=== PATIENT | female | born 1960 | race Two or more races ===

== ENCOUNTER 2017-07-08 16:41 | Inpatient (IN) | payer MEDICAID ==
[2017-07-08] MEDS ORDERED: cefTRIAXone 1 GM in Sodium Chloride 0.9% 50 ML IV ONE (17:31)
[2017-07-08 18:05] LABS: LYMPHOCYTE ABSOLUTE 0.5 Th/cmm (1.5-3.0); MEAN CORPUSCULAR HEMOGLOBIN 27.8 pg (27.0-31.0); MEAN CORPUSCULAR HGB CONC 33.5 pg (28.0-36.0); MEAN PLATELET VOLUME 8.4 fl; MONOCYTE ABSOLUTE 0.5 Th/cmm (0.3-1.0); NEUTROPHILE ABSOLUTE 11.1 Th/cmm (1.8-8.0); RED BLOOD COUNT 5.33 Mil/cmm (3.80-5.10); RED CELL DISTRIBUTION WIDTH 12.2 % (11.5-20.0)
--- NOTE | 2017-07-08 18:06 | ED Physician Chart ---
ED Chief Complaint/HPI - Patient Information Date Seen:: 07/08/17 Time Seen:: 17:00 Chief Complaint:: Left Leg Redness History of Present Illness:: onset x 3 days of LLE erythema and swelling; Hx of Cellulitis; pt denies trauma , H/As, neck pain, C/P, SOB, Abd. Pain, A/N/V/D/C, fever, chills, or urinary s/s Allergies:: Allergies Allergy/AdvReac Type Severity Reaction Status Date / Time No Known Allergies Allergy Verified 07/08/17 17:15 Vitals:: Vital Signs - 8 hr 07/08/17 17:00 Temp 100.9 F HR 120 RR 16 BP 142/76 O2 Sat % 98 Historian:: Patient Review:: Nurse's Note Reviewed ED Review of Systems - Review of Systems General/Constitutional: Fever, No chills, No weight loss, No weakness, No diaphoresis, No edema, No loss of appetite Skin: No skin lesions, No rash, No bruising Head: No headache, No light-headedness Eyes: No loss of vision, No pain, No diplopia ENT: No earache, No nasal drainage, No sore throat, No tinnitus Neck: No neck pain, No swelling, No thyromegaly, No stiffness, No mass noted Cardio Vascular: No chest pain, No palpitations, No PND, No orthopnea, No edema Pulmonary: No SOB, No cough, No sputum, No wheezing GI: No nausea, No vomiting, No diarrhea, No pain, No melena, No hematochezia, No constipation, No hematemesis G/U: No dysuria, No frequency, No hematuria, No nacturia 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, No abnormal vaginal bleed, No contraction Musculoskeletal: No bone or joint pain, No back pain, No muscle pain Endocrine: No polyuria, No polydipsia Psychiatric: No prior psych history, No depression, No anxiety, No suicidal ideation, No homicidal ideation, No auditory hallucination, No visual hallucination Hematopoietic: No bruising, No lymphadenopathy Allergic/Immuno: No urticaria, No angioedema Neurological: No syncope, No focal symptoms, No weakness, No paresthesia, No headache, No seizure, No dizziness, No confusion, No vertigo ED Past Medical History - Past Medical History Obtainable: Yes Past Medical History: HTN Family History: HTN Social History: Non Smoker, No Alcohol, No Drug Use, Surgical History: None Psychiatricy History: None Medication: Reviewed Family Medical History - Family Member Father History Unknown: Yes ED Physical Exam - Physical Examination General/Constitutional: Awake, Well-developed, well-nourished, Alert, No distress, GCS 15, Non-toxic appearing, Ambulatory Head: Atraumatic Eyes: Lids, conjuctiva normal, PERRL, EOMI Skin: Nl inspection, No rash, No skin lesions, No ecchymosis, Well hydrated, No lymphadenopathy Other Skin comments:: + LLE Cellulitis; no FBs ENMT: External ears, nose nl, TM canals nl, Nasal exam nl, Lips, teeth, gums nl , Oropharynx nl, Tonsils nl Neck: Nontender, Full ROM w/o pain, No JVD, No nuchal rigidity, No bruit, No mass, No stridor Respiratory: Nl effort/Exclusion, Clear to Auscultation, No Wheeze/Rhonchi/Rales Cardio Vascular: RRR, No murmur, gallop, rubs, NL S1 S2, Carotid/Femoral/Distal pulses equal bilaterally GI: No tenderness/rebounding/guarding, No organomegaly, No hernia, Normal BS's, Nondistended, No mass/bruits, No McBurney tenderness : No CVA tenderness Extremities: No tenderness or effusion, Full ROM, normal strength in all extremities, No edema, Normal digits & nails Other Extremities comments:: as above Neuro/Psych: Alert/oriented, DTR's symmetric, Normal sensory exam, Normal motor strength, Judgement/insight normal, Mood normal, Normal gait, No focal deficits Misc: Normal back, No paraspinal tenderness ED Labs/Radiology/EKG Results - Lab Results Comments:: WBC: 12.1; K+: 3.3 - EKG Interpretations EKG Time:: 17:40 Rate & Rhythm: 118; ST Comments:: LBBB; non-specific st-t changes ED Septic Shock - . Is Septic Shock (SBP<90, OR Lactate>4 mmol\L) present?: No - <6hrs of presentation: Vital Signs: Vital Signs - 8 hr 07/08/17 17:00 Temp 100.9 F HR 120 RR 16 BP 142/76 O2 Sat % 98 ED Reassessment (Disposition) - Reassessment Reassessment Condition:: Improved - Diagnosis Diagnosis:: Dx: Cellulitis; Leukocytosis; Hypokalemia - Patient Disposition Discharge/Transfer:: Acute Care w/in this hosp Accepting Physician:: Dr. Tom Time Called:: 1849 Time Responded:: 18:50 Admitted to:: Med/Surg Spoke to:: Dr. Tom Admitting Medical Physician:: Dr. Tom Condition at Disposition:: Stable, Improved
[2017-07-08 18:17] LABS: HEMATOCRIT 44.2 % (41.0-60); HEMOGLOBIN 14.8 gm/dL (12-16); PLATELET COUNT 212 Th/cmm (150-400); WHITE BLOOD COUNT 12.1 Th/cmm (4.8-10.8)
[2017-07-08 18:19] LABS: TROP I 0.02 ng/mL (0.01-0.05)
[2017-07-08 18:20] LABS: ALBUMIN 4.1 gm/dL (3.7-5.3); ALKALINE PHOSPHATASE 142 U/L (34-104); ANION GAP 10.1 (7.0-16.0); BUN - UREA NITROGEN 12 mg/dL (7-25); CALCIUM SERUM 9.6 mg/dL (8.6-10.3); CARBON DIOXIDE 28.2 mEq/L (21.0-31.0); CHLORIDE 100 mEq/L (98-107); CREATININE - SERUM 0.7 mg/dL (0.6-1.2); CREATININE KINASE 66 U/L (30-223); GFR AFRICAN-AMERICAN > 60.0 ml/min (>90); GFR NON AFRICAN-AMERICAN > 60.0 ml/min; GLUCOSE 88 mg/dL (70-105); POTASSIUM SERUM 3.3 mEq/L (3.5-5.1); SGOT 21 U/L (13-39); SGPT/ALT 23 U/L (7-52); SODIUM SERUM 135 mEq/L (136-145); TOTAL PROTEIN,SERUM 8.2 gm/dL (6.0-8.3)
[2017-07-08 18:35] LABS: INR 1.05 (0.5-1.4); PROTHROMBIN TIME (TEST) 10.9 SECONDS (9.5-11.5)
[2017-07-08 18:53] LABS: BAND NEUTROPHILE 6 % (0-10); LYMPHOCYTE 1 % (20-50); MONOCYTE 8 % (2-10); NEUTROPHILS 85 % (40-80)
[2017-07-08 18:54] LABS: PLATELET ESTIMATE ADEQUATE (NORMAL)
[2017-07-08 19:06] LABS: URINE MICROSCOPIC INDICATED? YES; URINE SOURCE MIDSTREAM
[2017-07-08 19:09] LABS: URINE BILIRUBIN SMALL (NEGATIVE); URINE BLOOD TRACE (NEGATIVE); URINE GLUCOSE (UA) NEGATIVE (NEGATIVE); URINE KETONE NEGATIVE (NEGATIVE); URINE LEUKOCYTE ESTERASE NEGATIVE (NEGATIVE); URINE NITRATE NEGATIVE (NEGATIVE); URINE PH 5.5 (4.6 - 8.0); URINE PROTEIN TRACE mg/dL (NEGATIVE)
[2017-07-08 19:18] LABS: URINE CLARITY CLEAR (CLEAR); URINE COLOR DARK YELLOW; URINE RBC 0-1 /hpf (0-5)
[2017-07-08 19:19] LABS: URINE BACTERIA 1+ /hpf (NONE SEEN); URINE EPITHELIAL CELLS FEW /lpf (FEW); URINE WBC 0-2 /hpf (0-5)
[2017-07-08] MEDS ORDERED: Potassium Chloride 20 mEq ER Tab PO ONE ×2 (19:55→20:22)
[2017-07-08] MEDS ORDERED: Potassium Chloride 20 mEq ER Tab PO PRN (21:33)
[2017-07-08] MEDS ORDERED: Mag Sulfate 2gm/50mL Premix 2 GM/50 ML BAG IV PRN (21:33)
[2017-07-08] MEDS ORDERED: Potassium Chloride 40 MEQ, Lidocaine 1% 20mL Vial 25 MG in Sodium Chloride 0.9% 250 ML IV PRN (21:33)
[2017-07-08] MEDS ORDERED: Sodium Chloride 0.9% 1,000 ML IV SCH (21:45)
[2017-07-08] MEDS: Morphine Sulfate 2 mg/mL 1mL Syr IVP PRN (23:11)
[2017-07-09 05:39] LABS: % BASOPHILS 0.1 % (0.0-2.0); % LYMPHOCYTES 13.4 % (20.0-50.0); % MONOCYTES 10.5 % (2.0-10.0); EOSINOPHILE ABSOLUTE 0.1 Th/cmm (0.1-0.4); HEMOGLOBIN 12.4 gm/dL (12-16); LYMPHOCYTE ABSOLUTE 0.8 Th/cmm (1.5-3.0); MEAN CELL VOLUME 82.5 fl (81-100); MEAN CORPUSCULAR HEMOGLOBIN 27.7 pg (27.0-31.0); MEAN CORPUSCULAR HGB CONC 33.6 pg (28.0-36.0); MEAN PLATELET VOLUME 8.3 fl; MONOCYTE ABSOLUTE 0.7 Th/cmm (0.3-1.0); NEUTROPHILE ABSOLUTE 4.7 Th/cmm (1.8-8.0); PLATELET COUNT 204 Th/cmm (150-400); RED BLOOD COUNT 4.46 Mil/cmm (3.80-5.10); RED CELL DISTRIBUTION WIDTH 12.5 % (11.5-20.0)
[2017-07-09 05:42] LABS: HEMATOCRIT 36.8 % (41.0-60); WHITE BLOOD COUNT 6.3 Th/cmm (4.8-10.8)
[2017-07-09 05:50] LABS: BUN - UREA NITROGEN 10 mg/dL (7-25); CALCIUM SERUM 8.9 mg/dL (8.6-10.3); CARBON DIOXIDE 28.2 mEq/L (21.0-31.0); CHLORIDE 103 mEq/L (98-107); CREATININE - SERUM 0.5 mg/dL (0.6-1.2); GFR AFRICAN-AMERICAN > 60.0 ml/min (>90); GFR NON AFRICAN-AMERICAN > 60.0 ml/min; GLUCOSE 114 mg/dL (70-105); POTASSIUM SERUM 4.2 mEq/L (3.5-5.1); SODIUM SERUM 134 mEq/L (136-145)
--- NOTE | 2017-07-09 08:07 | Diagnostic Imaging Report ---
Bilateral lower extremity DVT study HISTORY: Leg swelling, rule out DVT COMPARISON: None Technique: Longitudinal and transverse sonographic images of the bilateral lower extremity veins were obtained with doppler analysis. FINDINGS: There is normal compressibility, augmentation and phasicity of the bilateral common femoral, superficial femoral, popliteal, and posterior tibial veins. No thrombus is visualized. IMPRESSION: No evidence of thrombus within the bilateral lower extremity veins.
--- NOTE | 2017-07-09 08:09 | Diagnostic Imaging Report ---
CHEST X-RAY: AP view INDICATION: Leukocytosis COMPARISON: None FINDINGS: Increased interstitial lung markings are noted. There is no focal consolidation or pleural effusions The heart is normal in size. Degenerative changes of the spine are noted. IMPRESSION: Increased initial lung markings, nonspecific and probably chronic. No focal consolidation is identified.
[2017-07-09] MEDS ORDERED: Sodium Chloride 0.9% 1,000 ML IV SCH (08:30)
--- NOTE | 2017-07-09 09:23 | History & Physical ---
ADMIT DATE: 07/08/2017 CHIEF COMPLAINT: Intractable left lower extremity pain and inflammation, erythema. HISTORY OF PRESENT ILLNESS: The patient is a pleasant 56-year-old female. She is currently on disability because the left lower extremity cellulitis on multiple occasions. In 2012, she had a cyst removed from her knees. She states that it was not called a Huber's cyst. Since then, she has been experiencing cellulitis of left lower extremity every 6 months, but for the last year or so, she states it has been about every 3 months. She was experiencing fevers, intractable pain. She was found to have sepsis and cellulitis and admitted for further workup and treatment. PAST MEDICAL HISTORY: Significant for hypertension, multiple lower extremity cellulitis. SOCIAL HISTORY: She smokes about 2-3 cigarettes a day for about 10 years now. Denies any alcohol or drug abuse. FAMILY HISTORY: Noncontributory. ALLERGIES: No known drug allergies. PAST SURGICAL HISTORY: 1. Left knee cyst/mass removal in 2012. 2. One hysterectomy without any complications. MEDICATIONS: She states that she takes one blood pressure medication at home, but she cannot recall the name. REVIEW OF SYSTEMS: GENERAL: Positive recent fatigue, fevers and decreased appetite. HEENT: No recent head trauma or change in vision, taste, hearing, or smell. Oral: Denies any pain or discharge. SKIN: No recent rashes. Positive for erythema, inflammation and redness. The left lower extremity is positive for pain and the whole tibial area basically above the ankles and below the knee has been red, inflamed, and very tender for the last several days. MUSCULOSKELETAL: No history of DJD or recent falls. PSYCHIATRIC: No history of psychosis or hallucinations. CARDIOVASCULAR: She has history of hypertension. Denies any history of MIs. NEUROLOGIC: No history of stroke or seizure. RESPIRATORY: No history of COPD or asthma. PHYSICAL EXAMINATION: VITAL SIGNS: Temperature 97.6 degrees, heart rate is 82, respirations 16, blood pressure 122/78. Currently, the pain is about 2/10 in left lower extremity. GENERAL: No acute distress, awake, alert, pleasant. HEENT: No acute issues. NECK: Trachea is midline. No JVD. CARDIOVASCULAR: Regular rate and rhythm. ABDOMEN: Nontender, nondistended. RESPIRATORY: Clear. EXTREMITIES: No edema. SKIN: The left lower extremity has erythema, inflammation and is tender to touch. There are no open wounds; however, there is no discharge. PSYCHIATRIC: No psychosis or hallucinations. LABORATORY DATA: UA is negative. White count is 12.1; hemoglobin is 14.8; platelet count is 212,000. Sodium 135, potassium 3.3, chloride 100, bicarbonate 28.2, BUN 12, creatinine 0.7, alkaline phosphatase 142. Venous Doppler ultrasound preliminary report does not show any DVT in the left lower extremity. I have ordered arterial Doppler as well. ASSESSMENT: 1. Left lower extremity cellulitis. 2. Sepsis. 3. Hypertension. 4. Hypokalemia. PLAN: The patient is on Rocephin 1 gram IV daily. The white count is trending down. She reports improvement from yesterday. Continue IV fluids. She is on a regular diet. Her blood pressure has been stable. I will consider starting blood pressure medication if the blood pressure rises. Potassium has been replenished. Continue pain control. She is on IV normal saline as well. JOB# [id number]
--- NOTE | 2017-07-09 13:36 | Diagnostic Imaging Report ---
Left lower extremity arterial study HISTORY: Pain COMPARISON: None Technique: Longitudinal and transverse sonographic images of the left lower extremity arteries were obtained with doppler analysis. FINDINGS: Exam of the left lower extremity demonstrates mild to moderate atherosclerotic vascular disease with probably biphasic waveforms seen distally. No sonographic evidence of occlusion. Left ADDIE is 1 IMPRESSION: Mild to moderate atherosclerotic vascular disease. No sonographic evidence of occlusion.
[2017-07-09 14:21] LABS: A1C % 6.5 % (4.0-6.0)
[2017-07-09] MEDS ORDERED: Probiotic Screen MC PRN (15:24)
[2017-07-09] MEDS ORDERED: cefTRIAXone 1 GM in Sodium Chloride 0.9% 50 ML IV SCH (18:00)
[2017-07-09] MEDS: Morphine Sulfate 2 mg/mL 1mL Syr IVP PRN (21:30)
[2017-07-10 06:23] LABS: HEMATOCRIT 34.9 % (41.0-60); HEMOGLOBIN 11.9 gm/dL (12-16); MEAN CELL VOLUME 82.6 fl (81-100); MEAN CORPUSCULAR HEMOGLOBIN 28.1 pg (27.0-31.0); MEAN PLATELET VOLUME 8.4 fl; PLATELET COUNT 203 Th/cmm (150-400); RED BLOOD COUNT 4.22 Mil/cmm (3.80-5.10); RED CELL DISTRIBUTION WIDTH 12.3 % (11.5-20.0)
[2017-07-10 06:31] LABS: ANION GAP 6.9 (7.0-16.0); BUN - UREA NITROGEN 9 mg/dL (7-25); CALCIUM SERUM 8.4 mg/dL (8.6-10.3); CARBON DIOXIDE 24.9 mEq/L (21.0-31.0); CHLORIDE 107 mEq/L (98-107); CREATININE - SERUM 0.4 mg/dL (0.6-1.2); GFR AFRICAN-AMERICAN > 60.0 ml/min (>90); GFR NON AFRICAN-AMERICAN > 60.0 ml/min; GLUCOSE 110 mg/dL (70-105); POTASSIUM SERUM 3.8 mEq/L (3.5-5.1); SODIUM SERUM 135 mEq/L (136-145)
[2017-07-10 08:08] LABS: BAND NEUTROPHILE 7 % (0-10); EOSINOPHIL 4 % (0-5); LYMPHOCYTE 20 % (20-50); MONOCYTE 8 % (2-10); NEUTROPHILS 61 % (40-80); TOTAL CELLS COUNTED 100
[2017-07-10] MEDS ORDERED: Lactobacillus Rhamnosus GG 15 Billion CFU CAP.SPRINK PO SCH (09:00)
--- NOTE | 2017-07-10 23:10 | Discharge Summary ---
DATE OF DISCHARGE: 07/10/2017 CAUSE OF ADMISSION: The patient is a pleasant 56-year-old female. She has history of left lower extremity pain in the past; since 2012, she has been having cellulitis. She had a cyst removed from her knee on the left, it was not a Huber cyst. According to her, she has been experiencing cellulitis of the left lower extremity every 6 months since then. She was admitted for cellulitis and sepsis at this time again. ADMITTING DIAGNOSES: 1. Left lower extremity cellulitis. 2. Sepsis. 3. Hypertension. 4. Hypokalemia. DISCHARGE DIAGNOSES: 1. Left lower extremity cellulitis. 2. Sepsis. 3. Hypertension. 4. Hypokalemia. 5. Diabetes/prediabetes. SUMMARY OF HOSPITAL COURSE: The patient was started on Rocephin 1 g IV daily. The white count has been trending down today. Her inflammation, erythema and pain have decreased by over 80%. She is feeling much better. She is afebrile. She has been on regular diet. Blood pressure has been stable. Potassium was replenished as well. We continued pain control. She would like to go home today. PHYSICAL EXAMINATION: VITAL SIGNS: Temperature is 97.4 degrees, heart rate 72, respirations 17, blood pressure 130/77. Currently, no pain. GENERAL: No acute distress, awake, alert, pleasant. HEENT: No acute issues. NECK: Trachea is midline. CARDIOVASCULAR: Regular rate and rhythm. SKIN: Left lower extremity erythema and inflammation has reduced by over 90%, it is no longer tender. She is feeling much better. LABORATORY DATA: White count has reduced from 12 to 4, hemoglobin is 11.9, and platelet count is 203,000. Sodium 135, potassium 3.8, chloride 107, bicarb 24.9, BUN 9, creatinine 0.4, glucose is 110. Hemoglobin A1c is 6.5. Calcium is 8.4. SUMMARY OF HOSPITAL COURSE: The patient was admitted as mentioned above. She is on Rocephin. She is doing much better. Inflammation and erythema has improved. White count is down to normal. She is afebrile. IMAGING STUDY: Arterial Doppler and venous Doppler were done of the lower extremities, there is no DVT and arterial Doppler does not show any acute limitations, she does have [id number] atherosclerotic vascular disease, no occlusion however. DISPOSITION: She is discharging home. CONSULTS: None. PROCEDURES: None. MEDICATIONS: I have given her a script for Keflex as Rocephin is working very well for her and she just wants the oral version of that. I told her they are both cephalosporins and she is pleased. She is to follow with her PCP within 1 week of discharge. JOB# [id number]
== END 2017-07-10 10:30 | disposition home or self-care (01) | DRG 720 ==
LOC: ER 16:41 → MSI 20:05
PROVIDERS: ADMIT General Practice; ATTEND General Practice
DX: A41.9 Sepsis, unspecified organism (principal); L03.116 Cellulitis of left lower limb; I10 Essential (primary) hypertension; E11.9 Type 2 diabetes mellitus without complications; E87.6 Hypokalemia; F17.210 Nicotine dependence, cigarettes, uncomplicated; Z82.49 Family history of ischemic heart disease and other diseases of the circulatory system
CPT/HCPCS: 36415-UA; 71045-TC; 80048-TC; 80053-TC; 81001-TC; 82550-TC; 83036-90; 83605; 83735-TC; 84484-TC; 84703-TC; 85007-TC; 85025-TC; 85027-TC; 85610-TC; 85730-TC; 93005; 93926-LT-TC; 93970-TC-50; J0696; J1644; J2270; J7030; Z7610

== ENCOUNTER 2018-04-26 10:56 | Inpatient (IN) | payer MEDICAID ==
[2018-04-26] MEDS ORDERED: Morphine Sulfate 2 mg/mL 1mL Syr IV STA (11:34)
--- NOTE | 2018-04-26 11:39 | ED Physician Chart ---
ED Chief Complaint/HPI - Patient Information Date Seen:: 04/26/18 Time Seen:: 11:15 Chief Complaint:: Myalgias History of Present Illness:: onset x 3 days of generalized myalgias and LE MS type pain; pt denies trauma, LOC, ALOC, AMS, H/As, S/T, neck pain, C/P, cough, SOB, Abd. Pain, A/N/V/D/C, fever,chills, or urinary s/s Allergies:: Allergies Allergy/AdvReac Type Severity Reaction Status Date / Time No Known Allergies Allergy Verified 07/08/17 17:15 Vitals:: Vital Signs - 8 hr 04/26/18 11:14 Temp 99.4 F HR 106 RR 18 BP 115/53 O2 Sat % 98 Historian:: Patient Review:: Nurse's Note Reviewed, Old Chart Reviewed ED Review of Systems - Review of Systems General/Constitutional: No fever, No chills, No weight loss, No weakness, No diaphoresis, No edema, No loss of appetite Skin: No skin lesions, No rash, No bruising Head: No headache, No light-headedness Eyes: No loss of vision, No pain, No diplopia ENT: No earache, No nasal drainage, No sore throat, No tinnitus Neck: No neck pain, No swelling, No thyromegaly, No stiffness, No mass noted Cardio Vascular: No chest pain, No palpitations, No PND, No orthopnea, No edema Pulmonary: No SOB, No cough, No sputum, No wheezing GI: No nausea, No vomiting, No diarrhea, No pain, No melena, No hematochezia, No constipation, No hematemesis G/U: No dysuria, No frequency, No hematuria, No 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, No abnormal vaginal bleed, No contraction Musculoskeletal: Bone or joint pain, No back pain, Muscle pain Endocrine: No polyuria, No polydipsia Psychiatric: No prior psych history, No depression, No anxiety, No suicidal ideation, No homicidal ideation, No auditory hallucination, No visual hallucination Hematopoietic: No bruising, No lymphadenopathy Allergic/Immuno: No urticaria, No angioedema Neurological: No syncope, No focal symptoms, No weakness, No paresthesia, No headache, No seizure, No dizziness, No confusion, No vertigo ED Past Medical History - Past Medical History Obtainable: Yes Past Medical History: HTN, Arthritis Family History: HTN Social History: Non Smoker, No Alcohol, No Drug Use, Surgical History: , other (Left Knee Surgery) Psychiatricy History: None Medication: Reviewed Family Medical History - Family Member Father History Unknown: Yes Ethnicity: Living Status: Hx Family Cancer: Yes (LUNG CA) Hx Family Hypertension: Yes Mother Ethnicity: Living Status: Still Living Hx Family Hypertension: Yes ED Physical Exam - Physical Examination General/Constitutional: Awake, Well-developed, well-nourished, Alert, No distress, GCS 15, Non-toxic appearing, Ambulatory Head: Atraumatic Eyes: Lids, conjuctiva normal, PERRL, EOMI Skin: Nl inspection, No rash, No skin lesions, No ecchymosis, Well hydrated, No lymphadenopathy Other Skin comments:: + LE mild cellulitis ENMT: External ears, nose nl, TM canals nl, Nasal exam nl, Lips, teeth, gums nl , Oropharynx nl, Tonsils nl Neck: Nontender, Full ROM w/o pain, No JVD, No nuchal rigidity, No bruit, No mass, No stridor Respiratory: Nl effort/Exclusion, Clear to Auscultation, No Wheeze/Rhonchi/Rales Cardio Vascular: RRR, No murmur, gallop, rubs, NL S1 S2, Carotid/Femoral/Distal pulses equal bilaterally GI: No tenderness/rebounding/guarding, No organomegaly, No hernia, Normal BS's, Nondistended, No mass/bruits, No McBurney tenderness : No CVA tenderness Extremities: No tenderness or effusion, Full ROM, normal strength in all extremities, No edema, Normal digits & nails Neuro/Psych: Alert/oriented, DTR's symmetric, Normal sensory exam, Normal motor strength, Judgement/insight normal, Mood normal, Normal gait, No focal deficits Misc: Normal back, No paraspinal tenderness ED Labs/Radiology/EKG Results - Lab Results Comments:: Reviewed - Radiology Results Comments:: NAD - EKG Interpretations EKG Time:: 11:41 Rate & Rhythm: 88; NSR Comments:: LBBB; PVCs; non-specific st-t changes ED Septic Shock - . Is Septic Shock (SBP<90, OR Lactate>4 mmol\L) present?: No - <6hrs of presentation: Vital Signs: Vital Signs - 8 hr 04/26/18 11:14 Temp 99.4 F HR 106 RR 18 BP 115/53 O2 Sat % 98 ED Reassessment (Disposition) - Reassessment Reassessment Condition:: Improved - Diagnosis Diagnosis:: Leg Pain; Myalgias; Cellulitis; Hypokalemia; Leukocytosis; UTI; Elevated D-Dimer ; Sepsis - Aftercare/Follow up Instructions Aftercare/Follow-Up Instructions:: Counseled pt regarding lab results/diagnosis & need follow up, Counseled pt & family regarding lab results/diagnosis & need follow up - Patient Disposition Discharge/Transfer:: Acute Care w/in this hosp Accepting Physician:: Dr. Mehta Time Called:: 1300 Time Responded:: 13:00 Admitted to:: Telemetry Spoke to:: Dr. Mehta Admitting Medical Physician:: Dr. Mehta Condition at Disposition:: Stable, Improved
[2018-04-26 11:55] LABS: HEMATOCRIT 39.8 % (41.0-60); MEAN PLATELET VOLUME 8.3 fl
[2018-04-26] MEDS ORDERED: Morphine Sulfate 2 mg/mL 1mL Syr ONE (11:56)
[2018-04-26 11:58] LABS: HEMOGLOBIN 13.4 gm/dL (12-16); MEAN CELL VOLUME 82.3 fl (81-100); MEAN CORPUSCULAR HEMOGLOBIN 27.7 pg (27.0-31.0); MEAN CORPUSCULAR HGB CONC 33.7 pg (28.0-36.0); PLATELET COUNT 237 Th/cmm (150-400); RED BLOOD COUNT 4.83 Mil/cmm (3.80-5.10); RED CELL DISTRIBUTION WIDTH 12.5 % (11.5-20.0); WHITE BLOOD COUNT 14.7 Th/cmm (4.8-10.8)
[2018-04-26 12:03] LABS: INR 1.34 (0.5-1.4); PROTHROMBIN TIME (TEST) 13.7 SECONDS (9.5-11.5)
[2018-04-26 12:08] LABS: ALB/GLOB RATIO 1.2 (1.0-1.8); ALKALINE PHOSPHATASE 120 U/L (34-104); ANION GAP 13.4 (7.0-16.0); BILIRUBIN,TOTAL 1.1 mg/dL (0.3-1.0); BUN - UREA NITROGEN 16 mg/dL (7-25); CALCIUM SERUM 9.3 mg/dL (8.6-10.3); CARBON DIOXIDE 24.5 mEq/L (21.0-31.0); CHLORIDE 100 mEq/L (98-107); CHOLESTEROL 112 mg/dL (<200); CREATININE - SERUM 0.6 mg/dL (0.6-1.2); CREATININE KINASE 56 U/L (30-223); GFR AFRICAN-AMERICAN > 60.0 ml/min (>90); GFR NON AFRICAN-AMERICAN > 60.0 ml/min; GLUCOSE 130 mg/dL (70-105); HDL -HIGH DENSITY LIPOPROTEIN 48 mg/dL (23-92); SGOT 16 U/L (13-39); SGPT/ALT 21 U/L (7-52); SODIUM SERUM 135 mEq/L (136-145); TOTAL PROTEIN,SERUM 7.4 gm/dL (6.0-8.3); TRIGLYCERIDES 63 mg/dL (<150)
[2018-04-26] MEDS ORDERED: cefTRIAXone 1 GM in Sodium Chloride 0.9% 50 ML IV ONE (12:08)
[2018-04-26 12:10] LABS: POTASSIUM SERUM 2.9 mEq/L (3.5-5.1)
[2018-04-26 12:17] LABS: BAND NEUTROPHILE 2 % (0-10); BASOPHIL 0 % (0-3); EOSINOPHIL 0 % (0-5); LYMPHOCYTE 5 % (20-50); MONOCYTE 2 % (2-10); NEUTROPHILS 91 % (40-80)
[2018-04-26] MEDS ORDERED: Potassium Chloride 20 mEq ER Tab PO ONE ×2 (12:19→12:24)
[2018-04-26 12:20] LABS: DDIMER QUANT 466 ng/mL (100-400)
[2018-04-26 13:04] LABS: URINE SOURCE MIDSTREAM
[2018-04-26 13:18] LABS: URINE BILIRUBIN SMALL (NEGATIVE); URINE BLOOD TRACE (NEGATIVE); URINE GLUCOSE (UA) NEGATIVE (NEGATIVE); URINE KETONE TRACE mg/dL (NEGATIVE); URINE LEUKOCYTE ESTERASE MODERATE (NEGATIVE); URINE MICROSCOPIC INDICATED? YES; URINE NITRATE POSITIVE (NEGATIVE); URINE PROTEIN 30 mg/dL (NEGATIVE)
[2018-04-26 13:22] LABS: URINE CLARITY HAZY (CLEAR); URINE COLOR YELLOW
[2018-04-26 13:36] LABS: URINE BACTERIA 4+ /hpf (NONE SEEN); URINE EPITHELIAL CELLS MODERATE /lpf (FEW)
--- NOTE | 2018-04-26 14:05 | Diagnostic Imaging Report ---
Bilateral lower extremity Doppler venous ultrasound exam HISTORY: Pain/swelling Sonographic sector images were obtained through the deep venous systems of both legs. Associated Doppler data was obtained. The exam demonstrates patency of the common femoral, superficial femoral, popliteal, and posterior tibial veins bilaterally. Specifically, no thrombus is seen. There are normal compressibility and augmentation responses. IMPRESSION: Negative exam for deep vein thrombophlebitis.
[2018-04-26 19:00] VITALS: BP 138/84
[2018-04-27 05:00] LABS: HEMOGLOBIN 12.7 gm/dL (12-16); MONOCYTE ABSOLUTE 0.6 Th/cmm (0.3-1.0)
[2018-04-27 05:03] LABS: % BASOPHILS 0.6 % (0.0-2.0); % EOSINOPHILS 0.3 % (0.0-5.0); % LYMPHOCYTES 9.7 % (20.0-50.0); % MONOCYTES 6.1 % (2.0-10.0); % NEUTROPHILS 83.3 % (40.0-80.0); BASOPHILE ABSOLUTE 0.1 Th/cumm (0-0.2); MEAN CELL VOLUME 82.6 fl (81-100); MEAN CORPUSCULAR HEMOGLOBIN 27.7 pg (27.0-31.0); MEAN CORPUSCULAR HGB CONC 33.6 pg (28.0-36.0); MEAN PLATELET VOLUME 8.4 fl; NEUTROPHILE ABSOLUTE 8.6 Th/cmm (1.8-8.0); PLATELET COUNT 230 Th/cmm (150-400); RED CELL DISTRIBUTION WIDTH 12.6 % (11.5-20.0)
[2018-04-27 05:08] LABS: WHITE BLOOD COUNT 10.3 Th/cmm (4.8-10.8)
[2018-04-27 05:36] LABS: ALBUMIN 3.4 gm/dL (3.7-5.3); ALKALINE PHOSPHATASE 108 U/L (34-104); ANION GAP 12.4 (7.0-16.0); BILIRUBIN,TOTAL 0.5 mg/dL (0.3-1.0); BUN - UREA NITROGEN 13 mg/dL (7-25); CALCIUM SERUM 9.1 mg/dL (8.6-10.3); CARBON DIOXIDE 24.8 mEq/L (21.0-31.0); CHLORIDE 103 mEq/L (98-107); CREATININE - SERUM 0.5 mg/dL (0.6-1.2); GFR AFRICAN-AMERICAN > 60.0 ml/min (>90); GFR NON AFRICAN-AMERICAN > 60.0 ml/min; GLUCOSE 166 mg/dL (70-105); POTASSIUM SERUM 3.2 mEq/L (3.5-5.1); SGOT 13 U/L (13-39); SGPT/ALT 16 U/L (7-52); SODIUM SERUM 137 mEq/L (136-145); TOTAL PROTEIN,SERUM 6.8 gm/dL (6.0-8.3)
--- NOTE | 2018-04-27 07:34 | Diagnostic Imaging Report ---
Portable chest x-ray History: Cough Allowing for portable technique the heart size is normal. No focal pulmonary parenchymal processes. No hilar or mediastinal abnormalities. Impression: No acute abnormalities.
--- NOTE | 2018-04-27 08:13 | History and Physical ---
History of Present Illness - HPI Chief Complaint: Myalgias HPI: 57y old female who presents [facility] ER for generalized weakness and fatigue with myalgias to the lower extremities. Patient denies trauma, LOC, ALOC, AMS, H/As, S/T, neck pain, C/P, cough, SOB, Abd. Pain, A/N/V/ D/C, fever,chills, or urinary s/s. While in the ER patient had initial labwork which revealed the following .... WBC's 14.7 H/H 13.4/39.8 plat 237K Neutrophile 91 Lymphocytes 5 Na 135 K 2.8 Mg 1.9 Bun/cr 16/0.6 glu 130 BNP 125 UA nitrite + leuko moderate WBCs 10-15 bact +4 Past medical history includes hypertension and arthritis. Patient was subsequently admitted for further evaluation and treatment. Vital Signs: Last Vital Signs Temp 96.6 F 04/27/18 07:40 Pulse 78 04/27/18 07:40 Resp 18 04/27/18 07:40 BP 136/71 04/27/18 07:40 Pulse Ox 100 04/27/18 07:40 Past Medical History Cardiovascular: Report: HTN Pulmonary: Report: No Pertinent Hx GI: Report: No Pertinent Hx Psych: Report: No Pertinent Hx Musculoskeletal: Report: Osteoarthritis Infectious Disease: Report: No Pertinent Hx Renal/: Report: No Pertinent Hx Endocrine: Report: No Pertinent Hx Dermatology: Report: No Pertinent Hx - Past Surgical History Past Surgical History: , Other (left knee surgery) Family Medical History - Family Member Father History Unknown: Yes Ethnicity: Living Status: Hx Family Cancer: Yes (LUNG CA) Hx Family Hypertension: Yes Mother History Unknown: Yes Ethnicity: Living Status: Still Living Hx Family Hypertension: Yes Social History Smoke: No Alcohol: None Drugs: None Lives: With Family - Medications Home Medications: Home Medication Medication Instructions Recorded Type Lisinopril [Prinivil*] 50 mg PO DAILY 06/04/15 History - Allergies Allergies/Adverse Reactions: Allergies Allergy/AdvReac Type Severity Reaction Status Date / Time No Known Allergies Allergy Verified 07/08/17 17:15 Review of Systems - Review of Systems Constitutional: Report: No Significant Eyes: Report: No Significant ENT: Report: No Significant Respiratory: Report: No Significant Cardiovascular: Report: No Significant Gastrointestinal: Report: No Significant Genitourinary: Report: No Significant Musculoskeletal: Report: Leg Pain Skin: Report: No Significant Neurological: Report: Weakness Physical Exam - Physical Exam HEENT: Report: Ears Nose Throat within normal limits, Pharnyx within normal limits Neck: Report: Within normal limits Cardiovascular Systems: Report: +s1/s2 noted, Regular, Rate and Rhythm Respiratory: Report: Clear to Auscultation of lung benoit Abdomen: Report: Non-tender to palpation Back: Report: Inspection of back is within normal limits. Skin: Report: Other (presence of cellulitis to lower extremities) Neuro/Psych: Report: Mood affect is within normal limits - Lab Results All Lab Results last 24 hours: Laboratory Results - last 24 hr 04/26/18 04/26/18 04/26/18 11:40 11:40 11:40 WBC 14.7 H RBC 4.83 Hgb 13.4 Hct 39.8 L MCV 82.3 MCH 27.7 MCHC Differential 33.7 RDW 12.5 Plt Count 237 MPV 8.3 Add Manual Diff YES Neutrophils % Band Neutrophils % 2 Lymphocytes % Monocytes % Eosinophils % Basophils % Neutrophils (Manual) 91 H Lymphocytes 5 L Monocytes 2 Eosinophils 0 Basophils 0 PT 13.7 H INR 1.34 PTT (Actin FS) 27.8 D-Dimer 466 H Sodium 135 L Potassium 2.9 L* Chloride 100 Carbon Dioxide 24.5 Anion Gap 13.4 BUN 16 Creatinine 0.6 Est GFR ( Amer) > 60.0 Est GFR (Non-Af Amer) > 60.0 BUN/Creatinine Ratio 26.7 Glucose 130 H Whole Bld Lactic Acid Calcium 9.3 Magnesium Total Bilirubin 1.1 H AST 16 ALT 21 Alkaline Phosphatase 120 H Creatine Kinase 56 Troponin I B-Natriuretic Peptide Total Protein 7.4 Albumin 4.0 Globulin 3.4 Albumin/Globulin Ratio 1.2 Triglycerides 63 Cholesterol 112 LDL Cholesterol Direct 55 L HDL Cholesterol 48 Serum , Qual Urine Source Urine Color Urine Clarity Urine pH Ur Specific Lawrence Urine Protein Urine Glucose (UA) Urine Ketones Urine Blood Urine Nitrate Urine Bilirubin Urine Urobilinogen Ur Leukocyte Esterase Urine RBC Urine WBC Ur Epithelial Cells Urine Bacteria 04/26/18 04/26/18 04/26/18 11:40 11:40 11:40 WBC RBC Hgb Hct MCV MCH MCHC Differential RDW Plt Count MPV Add Manual Diff Neutrophils % Band Neutrophils % Lymphocytes % Monocytes % Eosinophils % Basophils % Neutrophils (Manual) Lymphocytes Monocytes Eosinophils Basophils PT INR PTT (Actin FS) D-Dimer Sodium Potassium Chloride Carbon Dioxide Anion Gap BUN Creatinine Est GFR ( Amer) Est GFR (Non-Af Amer) BUN/Creatinine Ratio Glucose Whole Bld Lactic Acid Calcium Magnesium Total Bilirubin AST ALT Alkaline Phosphatase Creatine Kinase Troponin I 0.02 B-Natriuretic Peptide 125.0 H Total Protein Albumin Globulin Albumin/Globulin Ratio Triglycerides Cholesterol LDL Cholesterol Direct HDL Cholesterol Serum , Qual NEGATIVE Urine Source Urine Color Urine Clarity Urine pH Ur Specific Lawrence Urine Protein Urine Glucose (UA) Urine Ketones Urine Blood Urine Nitrate Urine Bilirubin Urine Urobilinogen Ur Leukocyte Esterase Urine RBC Urine WBC Ur Epithelial Cells Urine Bacteria 04/26/18 04/26/18 04/26/18 11:40 11:40 12:45 WBC RBC Hgb Hct MCV MCH MCHC Differential RDW Plt Count MPV Add Manual Diff Neutrophils % Band Neutrophils % Lymphocytes % Monocytes % Eosinophils % Basophils % Neutrophils (Manual) Lymphocytes Monocytes Eosinophils Basophils PT INR PTT (Actin FS) D-Dimer Sodium Potassium Chloride Carbon Dioxide Anion Gap BUN Creatinine Est GFR ( Amer) Est GFR (Non-Af Amer) BUN/Creatinine Ratio Glucose Whole Bld Lactic Acid 1.19 Calcium Magnesium 1.9 Total Bilirubin AST ALT Alkaline Phosphatase Creatine Kinase Troponin I B-Natriuretic Peptide Total Protein Albumin Globulin Albumin/Globulin Ratio Triglycerides Cholesterol LDL Cholesterol Direct HDL Cholesterol Serum , Qual Urine Source MIDSTREAM Urine Color YELLOW Urine Clarity HAZY Urine pH 6.0 Ur Specific Lawrence >= 1.030 Urine Protein 30 H Urine Glucose (UA) NEGATIVE Urine Ketones TRACE Urine Blood TRACE Urine Nitrate POSITIVE H Urine Bilirubin SMALL H Urine Urobilinogen 2.0 Ur Leukocyte Esterase MODERATE H Urine RBC 2-5 Urine WBC 10-25 H Ur Epithelial Cells MODERATE Urine Bacteria 4+ H 04/27/18 04/27/18 04:10 04:10 WBC 10.3 D RBC 4.60 Hgb 12.7 Hct 38.0 L MCV 82.6 MCH 27.7 MCHC Differential 33.6 RDW 12.6 Plt Count 230 MPV 8.4 Add Manual Diff Neutrophils % 83.3 H Band Neutrophils % Lymphocytes % 9.7 L Monocytes % 6.1 Eosinophils % 0.3 Basophils % 0.6 Neutrophils (Manual) Lymphocytes Monocytes Eosinophils Basophils PT INR PTT (Actin FS) D-Dimer Sodium 137 Potassium 3.2 L Chloride 103 Carbon Dioxide 24.8 Anion Gap 12.4 BUN 13 Creatinine 0.5 L Est GFR ( Amer) > 60.0 Est GFR (Non-Af Amer) > 60.0 BUN/Creatinine Ratio 26.0 Glucose 166 H Whole Bld Lactic Acid Calcium 9.1 Magnesium Total Bilirubin 0.5 AST 13 ALT 16 Alkaline Phosphatase 108 H Creatine Kinase Troponin I B-Natriuretic Peptide Total Protein 6.8 Albumin 3.4 L Globulin 3.4 Albumin/Globulin Ratio 1.0 Triglycerides Cholesterol LDL Cholesterol Direct HDL Cholesterol Serum , Qual Urine Source Urine Color Urine Clarity Urine pH Ur Specific Lawrence Urine Protein Urine Glucose (UA) Urine Ketones Urine Blood Urine Nitrate Urine Bilirubin Urine Urobilinogen Ur Leukocyte Esterase Urine RBC Urine WBC Ur Epithelial Cells Urine Bacteria - Assessment Assessment: Cellulitis to the lower extremities Leg Pain Myalgias Hypokalemia Leukocytosis UTI Elevated D-Dimer possible Sepsis - Plan Plan: admit to telemetry continue IV antibiotics. repeat CBC,CMP K+ supplementation will order esr,ra,michelle,uric acid add tramadol
[2018-04-27] MEDS ORDERED: Potassium Chloride 20 mEq ER Tab PO ONE (08:22)
--- NOTE | 2018-04-27 09:54 | Diagnostic Imaging Report ---
Left knee (3 views) HISTORY: Pain Mild lateral joint space narrowing. No acute abnormality is. No fractures. Spur formation extends off the anterior superior margin of the patella. Small spur formation extends off the anterior margin of the tibial plateau. IMPRESSION: 1. No acute abnormalities 2. Chronic and mild degenerative changes as noted above
--- NOTE | 2018-04-27 09:55 | Diagnostic Imaging Report ---
Right knee (3 views) HISTORY: Pain Normal bone density. No acute amenities. No fractures. Spur formation extends off the anterior superior margin of the patella. IMPRESSION: 1. No acute abnormalities 2. Spur formation extending off the anterior superior margin of the patella
--- NOTE | 2018-04-27 09:56 | Diagnostic Imaging Report ---
Lumbar spine (3 views) HISTORY: Pain Alignment is normal. Minimal narrowing of the L3-4 disc space. Small spur formation noted off the anterior margins of all vertebrae. Air is seen within the interspace of L5-S1 consistent with degenerative disc disease. Hypertrophic changes noted about the facet joints at L5-S1. IMPRESSION: 1. No acute abnormalities 2. Degenerative changes as noted above
--- NOTE | 2018-04-27 10:13 | Diagnostic Imaging Report ---
Cervical spine (3 views) HISTORY: Pain Somewhat limited visualization of the lower cervical vertebrae due to patient's size and difficulty in positioning. Alignment appears normal. Degenerative changes with spur formation noted about the endplates of C4, C5, C6. No definite acute abnormalities. No definite fractures. IMPRESSION: 1. Suboptimal/Limited exam 2. No obvious acute abnormalities 3. Degenerative changes
[2018-04-27] MEDS ORDERED: cefTRIAXone 1 GM in Sodium Chloride 0.9% 50 ML IV SCH (12:00)
[2018-04-28 06:13] LABS: ALB/GLOB RATIO 0.9 (1.0-1.8); ALBUMIN 3.1 gm/dL (3.7-5.3); ALKALINE PHOSPHATASE 98 U/L (34-104); ANION GAP 10.4 (7.0-16.0); BILIRUBIN,TOTAL 0.3 mg/dL (0.3-1.0); BUN - UREA NITROGEN 21 mg/dL (7-25); CALCIUM SERUM 8.5 mg/dL (8.6-10.3); CARBON DIOXIDE 26.2 mEq/L (21.0-31.0); CHLORIDE 105 mEq/L (98-107); CREATININE - SERUM 0.4 mg/dL (0.6-1.2); GFR AFRICAN-AMERICAN > 60.0 ml/min (>90); GFR NON AFRICAN-AMERICAN > 60.0 ml/min; GLUCOSE 123 mg/dL (70-105); POTASSIUM SERUM 3.6 mEq/L (3.5-5.1); SGOT 12 U/L (13-39); SGPT/ALT 16 U/L (7-52); SODIUM SERUM 138 mEq/L (136-145); TOTAL PROTEIN,SERUM 6.4 gm/dL (6.0-8.3)
--- NOTE | 2018-04-28 08:38 | General Progress Note ---
Subjective - Review of Systems Service Date: 04/28/18 Subjective: Patient is awake, alert. no acute distress. feeling better today. Able to get up and move around better. Wants to go home. States that her joint pain has improved but still has some stiffness to her joints. Objective - Results Result Diagrams: 04/27/18 04:10 04/28/18 04:16 Recent Labs: Laboratory Last Values WBC 10.3 Th/cmm (4.8-10.8) D 04/27/18 04:10 RBC 4.60 Mil/cmm (3.80-5.10) 04/27/18 04:10 Hgb 12.7 gm/dL (12-16) 04/27/18 04:10 Hct 38.0 % (41.0-60) L 04/27/18 04:10 MCV 82.6 fl (81-100) 04/27/18 04:10 MCH 27.7 pg (27.0-31.0) 04/27/18 04:10 MCHC Differential 33.6 pg (28.0-36.0) 04/27/18 04:10 RDW 12.6 % (11.5-20.0) 04/27/18 04:10 Plt Count 230 Th/cmm (150-400) 04/27/18 04:10 MPV 8.4 fl 04/27/18 04:10 Add Manual Diff YES 04/26/18 11:40 Neutrophils % 83.3 % (40.0-80.0) H 04/27/18 04:10 Band Neutrophils % 2 % (0-10) 04/26/18 11:40 Lymphocytes % 9.7 % (20.0-50.0) L 04/27/18 04:10 Monocytes % 6.1 % (2.0-10.0) 04/27/18 04:10 Eosinophils % 0.3 % (0.0-5.0) 04/27/18 04:10 Basophils % 0.6 % (0.0-2.0) 04/27/18 04:10 Neutrophils (Manual) 91 % (40-80) H 04/26/18 11:40 Lymphocytes 5 % (20-50) L 04/26/18 11:40 Monocytes 2 % (2-10) 04/26/18 11:40 Eosinophils 0 % (0-5) 04/26/18 11:40 Basophils 0 % (0-3) 04/26/18 11:40 ESR 68 mm/hr (0-30) H 04/27/18 04:10 PT 13.7 SECONDS (9.5-11.5) H 04/26/18 11:40 INR 1.34 (0.5-1.4) 04/26/18 11:40 PTT (Actin FS) 27.8 SECONDS (26.0-38.0) 04/26/18 11:40 D-Dimer 466 ng/mL (100-400) H 04/26/18 11:40 Sodium 138 mEq/L (136-145) 04/28/18 04:16 Potassium 3.6 mEq/L (3.5-5.1) 04/28/18 04:16 Chloride 105 mEq/L (98-107) 04/28/18 04:16 Carbon Dioxide 26.2 mEq/L (21.0-31.0) 04/28/18 04:16 Anion Gap 10.4 (7.0-16.0) 04/28/18 04:16 BUN 21 mg/dL (7-25) 04/28/18 04:16 Creatinine 0.4 mg/dL (0.6-1.2) L 04/28/18 04:16 Est GFR ( Amer) > 60.0 ml/min (>90) 04/28/18 04:16 Est GFR (Non-Af Amer) > 60.0 ml/min 04/28/18 04:16 BUN/Creatinine Ratio 52.5 04/28/18 04:16 Glucose 123 mg/dL (70-105) H 04/28/18 04:16 Whole Bld Lactic Acid 1.19 mmol/L (0.60-1.99) 04/26/18 11:40 Uric Acid 3.8 mg/dL (2.3-6.6) 04/27/18 04:10 Calcium 8.5 mg/dL (8.6-10.3) L 04/28/18 04:16 Magnesium 1.9 mg/dL (1.9-2.7) 04/26/18 11:40 Total Bilirubin 0.3 mg/dL (0.3-1.0) 04/28/18 04:16 AST 12 U/L (13-39) L 04/28/18 04:16 ALT 16 U/L (7-52) 04/28/18 04:16 Alkaline Phosphatase 98 U/L (34-104) 04/28/18 04:16 Creatine Kinase 56 U/L (30-223) 04/26/18 11:40 Troponin I 0.02 ng/mL (0.01-0.05) 04/26/18 11:40 B-Natriuretic Peptide 125.0 pg/mL (5.0-100.0) H 04/26/18 11:40 Total Protein 6.4 gm/dL (6.0-8.3) 04/28/18 04:16 Albumin 3.1 gm/dL (3.7-5.3) L 04/28/18 04:16 Globulin 3.3 gm/dL 04/28/18 04:16 Albumin/Globulin Ratio 0.9 (1.0-1.8) L 04/28/18 04:16 Triglycerides 63 mg/dL (<150) 04/26/18 11:40 Cholesterol 112 mg/dL (<200) 04/26/18 11:40 LDL Cholesterol Direct 55 mg/dL (75-193) L 04/26/18 11:40 HDL Cholesterol 48 mg/dL (23-92) 04/26/18 11:40 Serum , Qual NEGATIVE (NEGATIVE) 04/26/18 11:40 Urine Source MIDSTREAM 04/26/18 12:45 Urine Color YELLOW 04/26/18 12:45 Urine Clarity HAZY (CLEAR) 04/26/18 12:45 Urine pH 6.0 (4.6 - 8.0) 04/26/18 12:45 Ur Specific Gans >= 1.030 (1.005-1.030) 04/26/18 12:45 Urine Protein 30 mg/dL (NEGATIVE) H 04/26/18 12:45 Urine Glucose (UA) NEGATIVE mg/dL (NEGATIVE) 04/26/18 12:45 Urine Ketones TRACE mg/dL (NEGATIVE) 04/26/18 12:45 Urine Blood TRACE (NEGATIVE) 04/26/18 12:45 Urine Nitrate POSITIVE (NEGATIVE) H 04/26/18 12:45 Urine Bilirubin SMALL (NEGATIVE) H 04/26/18 12:45 Urine Urobilinogen 2.0 E.U./dL (0.2 - 1.0) 04/26/18 12:45 Ur Leukocyte Esterase MODERATE (NEGATIVE) H 04/26/18 12:45 Urine RBC 2-5 /hpf (0-5) 04/26/18 12:45 Urine WBC 10-25 /hpf (0-5) H 04/26/18 12:45 Ur Epithelial Cells MODERATE /lpf (FEW) 04/26/18 12:45 Urine Bacteria 4+ /hpf (NONE SEEN) H 04/26/18 12:45 Rheumatoid Factor 20.0 IU/mL (0.0-13.9) H 04/27/18 04:10 - Physical Exam Vitals and I&O: Vital Signs Temp 97.9 F 04/28/18 08:00 Pulse 87 04/28/18 08:00 Resp 18 04/28/18 08:00 BP 127/78 04/28/18 08:00 Pulse Ox 100 04/28/18 08:00 Intake & Output 04/27/18 04/28/18 04/28/18 18:59 06:59 18:59 Intake Total 850 200 Output Total 0 Balance 850 200 Weight (lbs) 56.699 kg 56.699 kg Intake: Intake, IV Amount 50 cefTRIAXone 1 gm In 50 Sodium Chloride 0.9% 50 ml @ 100 mls/hr IV Q24HR [facility] Rx#:[id number] Oral 800 200 Tube Feeding 0 TPN/PPN 0 Blood Product 0 Lipid 0 Albumin 0 Output: Gastric Drainage 0 Urine/Stool Mix 0 Emesis 0 Hemodialysis 0 Other: # Voids 3 3 # Bowel Movements 1 0 Stool Characteristics Formed Weight Source Bedscale Bedscale Active Medications: Current Medications Ceftriaxone Sodium 1 gm/ (Sodium Chloride) 50 mls @ 100 mls/hr IV Q24HR [facility] Stop: 06/26/18 11:59 Last Infusion: 04/27/18 12:00 Dose: Infused Ibuprofen (Motrin) 600 mg PO BID PRN PRN Reason: Pain (Moderate) LEVEL 4-6 Stop: 06/25/18 17:16 Last Admin: 04/28/18 08:03 Dose: 600 mg Tramadol HCl (Ultram) 50 mg PO Q6HR PRN PRN Reason: moderate pain Stop: 06/26/18 08:12 Last Admin: 04/28/18 05:51 Dose: 50 mg General: Alert, No acute distress HEENT: Atraumatic, PERRLA, EOMI - Procedures Procedures: Procedures Procedure Code Date C.A.T. SCAN OF HEAD 87.03 02/06/99 CT HEAD/BRAIN W/DYE 55571 02/06/99 D & C POST DELIVERY 69.02 02/04/00 EMERGENCY DEPT VISIT 77326 05/23/11 EXC LES TEND SHEATH HAND 82.21 03/21/99 INJECT/INFUSE NEC 99.29 08/27/13 REMOVE TENDON SHEATH LESION 11771 03/21/99 TREATMENT OF MISCARRIAGE 91632 02/04/00 Assessment/Plan - Assessment Assessment: Arthropathy +RA factor ... will continue Ibuprofen PRN. Cellulitis to the lower extremities improved ... DC Rocephin, continue Bactrim DS Leg Pain improved Myalgias improved Hypokalemia resolved. Leukocytosis now normal UTI ... DC rocephin IV and start Bactrim DS. Elevated ESR, +RA factor ... consider outpatient Rheumatology referral Sepsis ruled out. - Plan Plan: admit to telemetry continue IV antibiotics. repeat CBC,CMP K+ supplementation will order esr,ra,michelle,uric acid add tramadol Nutritional Asmnt/Malnutr-PDOC - Dietary Evaluation Malnutrition Findings (Please click <Entered> for more info): Nutritional Asmnt/Malnutrition Start: 04/27/18 15: 39 Text: Status: Complete Freq: Protocol: Document 04/27/18 15:39 LCHENG (Rec: 04/27/18 15:55 [email or web address]) Nutritional Asmnt/Malnutrition Patient General Information Nutritional Screening High Risk Diagnosis UTI, sepsis, BLE cellulitis, hypokalemia Pertinent Medical Hx/Surgical Hx HTN, arthritis, C section, L knee surgery Subjective Information Pt seen sitting in her room at time of visit, awake and alert. Pt stated she has appetite, food preference provided to RD. Per EMR, PO intake 75%. Current Diet Order/ Nutrition Support regular Pertinent Medications reviewed Pertinent Labs 04/27 K 3.2, Cr 0.5, glucose 166 Nutritional Hx/Data Height 1.5 m Height (Calculated Centimeters) 149.9 Current Weight (lbs) 56.699 kg Weight (Calculated Kilograms) 56.7 Weight (Calculated Grams) 45489.0 Body Mass Index (BMI) 25.2 GI Symptoms GI Symptoms None Last BM none noted Difficult in: None Skin Integrity/Comment: redness to right leg, rash to left leg Current %PO Good (75-100%) Estimated Nutritional Goals BEE in Kcals: Using Current wt Calories/Kcals/Kg 25-30 Kcals Calculated 3346-1848 Protein: Using Current wt Protein g/k-1.2 Protein Calculated 57-68 Fluid: ml 1425-1710ml (1ml/kcal) Nutritional Problem 1. Problem Problem altered nutrition related labs Etiology electrolytes imbalance Signs/Symptoms: K 3.2 Malnutrition Alert Is there a minimum of two criteria No selected? Query Text:Check all the applicable criteria. A minimum of two criteria are recommended for diagnosis of either severe or non-severe malnutrition. Malnutrition Related to Morbid Obesity Malnutrition related to morbid obesity No Intervention/Recommendation Comments 1. Continue with regular diet as ordered. Diet preference updated. MD to replace electrolytes. 2. Monitor PO intake, wt, labs and skin integrity 3. F/U as moderate risk in 3-5 days, 04/30-05/02 Expected Outcomes/Goals Expected Outcomes/Goals 1. PO intake to meet at least 75% of nutritional needs. 2. Wt stability, skin to remain intact, labs to approach WNL.
--- NOTE | 2018-05-01 14:30 | Discharge Summary ---
DATE OF DISCHARGE: 04/28/2018 PRELIMINARY DIAGNOSES: 1. Cellulitis to the lower extremities. 2. Leg pain. 3. Hypokalemia. 4. Leukocytosis. 5. Urinary tract infection. 6. Elevated D-dimer. 7. Possible sepsis. DISCHARGE DIAGNOSES: 1. Arthropathy to the lower extremities with positive RA factor most likely due to rheumatoid arthritis. 2. Cellulitis to lower extremities, improved. 3. Leg pain, improved. 4. Myalgia, now improved. 5. Hypokalemia, now resolved. 6. Leukocytosis, now normal. 7. Urinary tract infection, positive Escherichia coli. 8. Sepsis ruled out. 9. Elevated sedimentation rate with positive RA factor. HISTORY OF PRESENT ILLNESS: This is a 57-year-old female who presents to [facility] ER for generalized weakness and fatigue with myalgia to the lower extremities. The patient denies any trauma or loss of consciousness, altered level of conscious or denies any headaches, neck pain, chest pain, or shortness of breath. Denies any abdominal pain. Denies any nausea, vomiting, diarrhea, constipation, fever, chills or urinary symptoms. While in the ER, the patient had some initial lab work, which revealed a white count of 14,000, hemoglobin of 13.4, hematocrit 39.8, platelets 237,000, neutrophils 91, lymphocytes 5. Sodium 135, potassium 2.8, mag 109, BUN 16, creatinine 0.6, glucose 130. BNP was 129. UA was positive for nitrites, leukocyte esterase was moderate. WBCs were 10-15 cells per high power field, +4 bacteria. The patient's past medical history includes hypertension, arthritis. She was subsequently admitted for further evaluation and treatment. HOSPITAL COURSE: The patient improved during her hospital stay. Repeat CBC done the following day revealed a normal white count of 10,000. Potassium improved from 2.9 to 3.2 and eventually back to normal at 3.6 on 04/28/2018. Sed rate was ordered, which was elevated at 68. RA factor was also positive for 20. Urine test was positive for UTI. The C and S came back positive for E. coli. The patient was treated with IV Rocephin during her hospital stay. Sensitivities came back to all antibiotics. She was subsequently discharged in stable condition, was changed from Rocephin IV to Bactrim-DS 1 tablet twice a day for 7 days. The patient also states that her pain to her upper and lower extremities improved, was given tramadol during her hospital stay for the pain, which was later discontinued. The patient was to continue ibuprofen 800 mg twice daily. She was also to follow up with her regular physician for possible outpatient referral to a candy spreader helper given her positive RA factor. The patient was subsequently discharged in stable condition to follow up with his regular physician in 3-5 days. JOB# [id number]
== END 2018-04-28 10:55 | disposition home or self-care (01) | DRG 346 ==
LOC: ER 10:56 → TELE 17:05
PROVIDERS: ADMIT Family Medicine; ATTEND Family Medicine
DX: M06.9 Rheumatoid arthritis, unspecified (principal); R65.10 Systemic inflammatory response syndrome (SIRS) of non-infectious origin without acute organ dysfunction; L03.115 Cellulitis of right lower limb; E44.1 Mild protein-calorie malnutrition; L03.116 Cellulitis of left lower limb; N39.0 Urinary tract infection, site not specified; E87.6 Hypokalemia; I10 Essential (primary) hypertension; M79.10 Myalgia, unspecified site; M19.90 Unspecified osteoarthritis, unspecified site; B96.20 Unspecified Escherichia coli [E. coli] as the cause of diseases classified elsewhere; Z82.49 Family history of ischemic heart disease and other diseases of the circulatory system; E86.0 Dehydration
CPT/HCPCS: 36415-UA; 71045-TC; 72040-TC; 72100-TC; 73560-TC-LT; 73560-TC-RT; 80053-TC; 80061-TC; 81001-TC; 82550-TC; 83605; 83735-TC; 83880-TC; 84484-TC; 84550-TC; 84703-TC; 85007-TC; 85025-TC; 85379-TC; 85610-TC; 85652-TC; 85730-TC; 86430-90; 87086-90; 93005; 93970-TC-50; 94760; 96375; J0696; J2270